=== PATIENT | female | born 1985 | race Caucasian/White ===

== ENCOUNTER 2017-06-18 14:25 | Emergency (ER) | payer OTHER ==
[~2017-06-18] VITALS: Ht 160 cm; Wt 60.3 kg
[~2017-06-18 14:25] MED LIST: FLUO20CA36 PO; PANT40TA PO; PHN25X PO; RMR15 PO; VLM5 PO
[2017-06-18 14:32] VITALS: TEMP 36.9; Ht 160 cm; Wt 60.3 kg
[2017-06-18] MEDS ORDERED: KETOROLAC TROMETHAMINE 30 MG/ML VIAL IV STA (15:41)
[2017-06-18] MEDS ORDERED: ONDANSETRON INJ 2 MG/ML 2 ML VIAL IV STA (15:41)
[2017-06-18] MEDS ORDERED: SODIUM CHLORIDE 0.9% 1000ML 1,000 ML IV STA (15:41)
[2017-06-18] MEDS ORDERED: MoRPHine SULFATE 4 MG/ML 1 ML CARP\\VIAL IV STA (15:41)
[2017-06-18] MEDS ORDERED: MoRPHine SULFATE 4 MG/ML 1 ML CARP\\VIAL IV PRN (15:45)
[2017-06-18] MEDS ORDERED: OPTIRAY 320 IV PRN (15:45)
[2017-06-18] MEDS ORDERED: LORA-741 PO (15:47)
[2017-06-18] MEDS ORDERED: METH10TA4 PO (15:48)
[2017-06-18 16:06] LABS: BASO % 0.2 %; BASO ABS # 0.02 K/uL (0-0.2); COMPLETE YES; EOS % 0.9 %; HEMATOCRIT 43.7 % (37-47); IG% 0.3 %; LYMPH % 24.4 %; MEAN CELL VOLUME 91.8 fL (80-100); MEAN CORPUSCULAR HEMOGLOBIN 31.9 pg (25-34); MEAN CORPUSCULAR HGB CONC 34.8 g/dl (32-36); MEAN PLATELET VOLUME 10.7 fL (7.4-10.4); MONO % 4.9 %; NEUT % 69.3 %; PLATELET COUNT 345 K/uL (130-400); RED BLOOD COUNT 4.76 M/uL (4.2-5.4); WHITE BLOOD COUNT 9.85 K/uL (4.8-10.8)
[2017-06-18 16:13] LABS: BUN/CREATININE RATIO 24.4 (10-20); CALCIUM 9.8 mg/dl (8.5-10.1); CREATININE 0.77 mg/dl (0.60-1.20); POTASSIUM 3.9 mmol/L (3.5-5.1)
--- NOTE | 2017-06-18 17:30 | DIAGNOSTIC IMAGING REPORT ---
EXAMINATION: PELVIC ULTRASOUND (transabdominal and endovaginal scanning) CLINICAL HISTORY: Pelvic pain COMPARISON STUDY: 12/02/2013 FINDINGS: The uterus measured 9.5 x 5.0 x 6.7 cm. There is a 1 cm hypoechoic focus within the left myometrium posteriorly, possibly representing a small fibroid. The endometrial stripe measured 12 mm. The right ovary measured 34 x 19 x 25 mm. The left ovary measured 41 x 22 x 25 mm. There is a 16 mm mildly complex follicle.. There is no ultrasonographic evidence of ovarian torsion. It should be noted that ovarian torsion can be present with normal Doppler ultrasonographic findings. There was no evidence of pathologic free pelvic fluid. IMPRESSION: 1. 1 cm hypoechoic focus in the left myometrium, likely are presenting a small fibroid 2. 16 mm mildly complex left ovarian follicle Electronically signed by: Ac De La Vega M.D. 06/18/2017 5:29 PM Dictated Date/Time: 06/18/2017 5:26 PM
[2017-06-18 18:44] LABS: MANUAL MICROSCOPIC REQUIRED? NO; REVIEW REQ? NO; URINE APPEARANCE CLEAR (CLEAR); URINE BILIRUBIN NEG (NEG); URINE COLOR YELLOW; URINE EPITHELIAL CELL AUTO 20-30 /lpf (0-5); URINE NITRITE NEG (NEG); URINE SPECIFIC GRAVITY 1.017 (1.000-1.030); UROBILINOGEN NEG (NEG)
--- NOTE | 2017-06-18 18:46 | DIAGNOSTIC IMAGING REPORT ---
ABDOMEN AND PELVIS CT WITH IV AND ORAL CONTRAST CT DOSE: 269.40 mGy.cm HISTORY: lower abdominal pain TECHNIQUE: Multiaxial CT images of the abdomen and pelvis were performed following the use of intravenous and oral contrast. A dose lowering technique was utilized adhering to the principles of ALARA. COMPARISON STUDY: Abdomen and pelvis CT 10/08/2015. FINDINGS: The lung bases are clear. The liver, spleen, gallbladder, pancreas, kidneys, and adrenal glands are within normal limits. No bowel wall thickening or obstruction. The pelvic organs are unremarkable. No suspicious lytic or blastic osseous lesions. IMPRESSION: No significant abnormality identified within the abdomen or pelvis. Electronically signed by: August Aburto M.D. 06/18/2017 6:45 PM Dictated Date/Time: 06/18/2017 6:37 PM
[2017-06-18 18:47] LABS: BENZODIAZEPINE, URINE POS (NEG); COCAINE,URINE NEG (NEG); PHENCYCLIDINE, URINE NEG (NEG)
[2017-06-18] MEDS ORDERED: TRAM-10 PO (19:29)
[2017-06-18 20:05] VITALS: BP 103/77; PULSE 81; O2SAT 99
--- NOTE | 2017-06-18 22:36 | EMERGENCY ROOM VISIT NOTE ---
History First contact with patient: 15:24 Chief Complaint: ABDOMINAL PAIN Stated Complaint: ABD. PAIN Nursing Triage Summary: triage note: Pt reports intermittent mid lower abd pain x 9 months. pt reports appt with [facility] for next saturday - she has not gone to [facility] for 4 years. History of Present Illness The patient is a 31 year old female who presents to the Emergency Room with complaints of lower abdominal pain radiating into the back, right worse than left. The patient reports that she has had intermittent lower abdominal pain for the past 9 months. It has worsened over the past week. The patient reports a prior history of Meckel's diverticulitis with bowel resection in 1996. Her last colonoscopy was approximately 3 years ago, finding polyps and no other acute findings. A colonoscopy was performed by Dr. Mcpherson. The patient denies any prior history of pelvic disease. She is status post appendectomy with her bowel resection. The patient does report decreased urine output without dysuria or hematuria. The patient denies , and reports that she has not had any sexual activity within the past month. Last menstruation was 2 weeks ago. She denies any vaginal drainage or spotting. The patient does have an appointment scheduled with [facility] next Saturday, and states that she has not had an [facility] evaluation in the past 4 years. She currently rates her discomfort a 6 out of 10. She denies any alleviating or aggravating factors for her pain. OB history is with a normal vaginal full -term delivery. Review of Systems HEENT: Denies dizziness, visual problems, hearing loss, tinnitus. Denies difficulty swallowing or oral lesions. PULMONARY: Denies cough, shortness of breath, sputum production or hemoptysis. CARDIOVASCULAR: Denies chest pain, palpitations, dyspnea on exertion, orthopnea or peripheral edema. GASTROINTESTINAL: Denies diarrhea, constipation or vomiting, otherwise see history of present illness. GENITOURINARY: Denies dysuria, frequency, urgency or nocturia. NEUROLOGIC: Denies history of epilepsy, CVA, TIA or chronic headaches. MUSCULOSKELETAL: Denies history of joint tenderness/swelling. SKIN: Denies rashes or lesions. PSYCHIATRIC: Denies history of depression or mental illness. ENDOCRINE: Denies history of diabetes or thyroid disorders. Past Medical/Surgical History Medical Problems: (1) Abdominal pain (2) Abdominal pain (3) Acute gastritis (4) Anxiety (5) Anxiety (6) Blepharitis of left eye (7) Hypokalemia (8) Intractable nausea and vomiting (9) Intrauterine device (IUD) contraception (10) Meckel's diverticulum (11) Nausea and vomiting (12) Vomiting (13) Vomiting Family History Cancer Diabetes mellitus FHx: gallbladder disease Hypertension Kidney disease Kidney stones Social History Smoking Status: Current Every Day Smoker Alcohol Use: none Drug Use: marijuana Marital Status: in relationship Housing Status: lives with family Occupation Status: employed Current/Historical Medications Scheduled Fluoxetine HCl (Fluoxetine HCl), 20 MG PO QAM Methylphenidate (Ritalin), 10 MG PO TID Scheduled PRN Lorazepam (Ativan), 0.5 MG PO TID PRN for Anxiety Tramadol (Ultram), 1-2 TAB PO Q4H PRN for Pain Allergies Coded Allergies: No Known Allergies (Verified , 06/18/17) Physical Exam Vital Signs Date Time Temp Pulse Resp B/P (MAP) Pulse Ox O2 Delivery O2 Flow Rate FiO2 06/18/17 20:05 81 18 103/77 99 06/18/17 19:40 81 18 103/77 99 Room Air 06/18/17 17:40 72 18 93/72 100 Room Air 06/18/17 16:15 79 18 104/73 100 Room Air 06/18/17 14:32 36.9 97 18 113/90 99 Room Air Physical Exam CONSTITUTIONAL: Healthy and well nourished. Alert and oriented X 3 with positive affect. Patient appears in moderate discomfort from pain. She does not appear acutely ill or toxic. HEENT: Normocephalic, atraumatic. Pupils equal, round and reactive. Ears and nares are clear. No scleral icterus or conjunctival injection/pallor. NECK: Full active range of motion without discomfort. RESPIRATORY: Clear to auscultation bilaterally with no wheezing, crackles, rhonchi or stridor. CARDIOVASCULAR: Regular rate and rhythm with no murmurs, rubs or gallops. GASTROINTESTINAL: Bowel sounds present in all quadrants. Patient has notable lower abdominal tenderness to palpation, and no focal upper abdominal tenderness. Negative CVA tenderness. No rigidity, guarding or rebound. GENITOURINARY: Exam was deferred by the patient. MUSCULOSKELETAL: Full range of motion of all joints without discomfort. INTEGUMENTARY: No rash or other significant dermatologic conditions noted. HEMATOLOGIC: No ecchymosis or petechiae noted. NEUROLOGIC: No focal neurologic deficits noted. Medical Decision & Procedures ER Provider Diagnostic Interpretation: Pelvic ultrasound shows the following: EXAMINATION: PELVIC ULTRASOUND (transabdominal and endovaginal scanning) CLINICAL HISTORY: Pelvic pain COMPARISON STUDY: 12/02/2013 FINDINGS: The uterus measured 9.5 x 5.0 x 6.7 cm. There is a 1 cm hypoechoic focus within the left myometrium posteriorly, possibly representing a small fibroid. The endometrial stripe measured 12 mm. The right ovary measured 34 x 19 x 25 mm. The left ovary measured 41 x 22 x 25 mm. There is a 16 mm mildly complex follicle.. There is no ultrasonographic evidence of ovarian torsion. It should be noted that ovarian torsion can be present with normal Doppler ultrasonographic findings. There was no evidence of pathologic free pelvic fluid. IMPRESSION: 1. 1 cm hypoechoic focus in the left myometrium, likely are presenting a small fibroid 2. 16 mm mildly complex left ovarian follicle Enhanced CT of the abdomen and pelvis does not show any evidence for acute appendicitis, diverticulitis or other acute findings. Radiologist report is as follows: ABDOMEN AND PELVIS CT WITH IV AND ORAL CONTRAST CT DOSE: 269.40 mGy.cm HISTORY: lower abdominal pain TECHNIQUE: Multiaxial CT images of the abdomen and pelvis were performed following the use of intravenous and oral contrast. A dose lowering technique was utilized adhering to the principles of ALARA. COMPARISON STUDY: Abdomen and pelvis CT 10/08/2015. FINDINGS: The lung bases are clear. The liver, spleen, gallbladder, pancreas, kidneys, and adrenal glands are within normal limits. No bowel wall thickening or obstruction. The pelvic organs are unremarkable. No suspicious lytic or blastic osseous lesions. IMPRESSION: No significant abnormality identified within the abdomen or pelvis. Laboratory Results 06/18/17 15:30 Red Blood Count 4.76, Mean Corpuscular Volume 91.8, Mean Corpuscular Hemoglobin 31.9, Mean Corpuscular Hemoglobin Concent 34.8, Mean Platelet Volume 10.7, Neutrophils (%) (Auto) 69.3, Lymphocytes (%) (Auto) 24.4, Monocytes (%) (Auto) 4.9, Eosinophils (%) (Auto) 0.9, Basophils (%) (Auto) 0.2, Neutrophils # (Auto) 6.83, Lymphocytes # (Auto) 2.40, Monocytes # (Auto) 0.48, Eosinophils # (Auto) 0.09, Basophils # (Auto) 0.02 06/18/17 15:30 Test 06/18/17 15:30 06/18/17 18:14 White Blood Count 9.85 K/uL (4.8-10.8) Red Blood Count 4.76 M/uL (4.2-5.4) Hemoglobin 15.2 g/dL (12.0-16.0) Hematocrit 43.7 % (37-47) Mean Corpuscular Volume 91.8 fL (80-100) Mean Corpuscular Hemoglobin 31.9 pg (25-34) Mean Corpuscular Hemoglobin Concent 34.8 g/dl (32-36) Platelet Count 345 K/uL (130-400) Mean Platelet Volume 10.7 fL (7.4-10.4) Neutrophils (%) (Auto) 69.3 % Lymphocytes (%) (Auto) 24.4 % Monocytes (%) (Auto) 4.9 % Eosinophils (%) (Auto) 0.9 % Basophils (%) (Auto) 0.2 % Neutrophils # (Auto) 6.83 K/uL (1.4-6.5) Lymphocytes # (Auto) 2.40 K/uL (1.2-3.4) Monocytes # (Auto) 0.48 K/uL (0.11-0.59) Eosinophils # (Auto) 0.09 K/uL (0-0.5) Basophils # (Auto) 0.02 K/uL (0-0.2) RDW Standard Deviation 40.5 fL (36.4-46.3) RDW Coefficient of Variation 12.0 % (11.5-14.5) Immature Granulocyte % (Auto) 0.3 % Immature Granulocyte # (Auto) 0.03 K/uL (0.00-0.02) Anion Gap 5.0 mmol/L (3-11) Est Creatinine Clear Calc Drug Dose 85.9 ml/min Estimated GFR () 117.6 Estimated GFR (Non- 101.4 BUN/Creatinine Ratio 24.4 (10-20) Calcium Level 9.8 mg/dl (8.5-10.1) Total Bilirubin 0.8 mg/dl (0.2-1) Direct Bilirubin 0.2 mg/dl (0-0.2) Aspartate Amino Transf (AST/SGOT) 10 U/L (15-37) Alanine Aminotransferase (ALT/SGPT) 15 U/L (12-78) Alkaline Phosphatase 63 U/L (45-117) Total Protein 8.0 gm/dl (6.4-8.2) Albumin 4.1 gm/dl (3.4-5.0) Lipase 119 U/L (73-393) Urine Color YELLOW Urine Appearance CLEAR (CLEAR) Urine pH 7.0 (4.5-7.5) Urine Specific [place] 1.017 (1.000-1.030) Urine Protein NEG (NEG) Urine Glucose (UA) NEG (NEG) Urine Ketones TRACE (NEG) Urine Occult Blood NEG (NEG) Urine Nitrite NEG (NEG) Urine Bilirubin NEG (NEG) Urine Urobilinogen NEG (NEG) Urine Leukocyte Esterase TRACE (NEG) Urine WBC (Auto) 1-5 /hpf (0-5) Urine RBC (Auto) 0-4 /hpf (0-4) Urine Hyaline Casts (Auto) 1-5 /lpf (0-5) Urine Epithelial Cells (Auto) 20-30 /lpf (0-5) Urine Bacteria (Auto) NEG (NEG) Urine Test NEG (NEG) Urine Opiates Screen POS (NEG) Urine Methadone, Qualitative NEG (NEG) Urine Barbiturates NEG (NEG) Urine Phencyclidine (PCP) Level NEG (NEG) Ur Amphetamine/Methamphetamine POS (NEG) MDMA (Ecstasy) Screen NEG (NEG) Urine Benzodiazepines Screen POS (NEG) Urine Cocaine Metabolite NEG (NEG) Urine Marijuana (THC) POS (NEG) The above labs were reviewed. The patient has no leukocytosis, although she has a mild left shift and bandemia. Partial renal profile, LFTs and lipase are grossly normal. Urinalysis shows a contaminated sample without hematuria. There is trace leukocyte esterase. Urine is negative. Urine drug screen is positive for opiates, amphetamines, benzodiazepines and marijuana. Medications Administered Medications (Trade) Dose Ordered Sig/Carlos Route Start Time Stop Time Status Last Admin Dose Admin Ketorolac Tromethamine (Toradol Inj) 30 mg NOW STAT IV 06/18/17 15:41 06/18/17 15:44 DC 06/18/17 16:10 30 MG Sodium Chloride 1,000 ml @ 999 mls/hr Q1H1M STAT IV 06/18/17 15:41 06/18/17 16:41 DC 06/18/17 16:12 999 MLS/HR Ondansetron HCl (Zofran Inj) 4 mg NOW STAT IV 06/18/17 15:41 06/18/17 15:44 DC 06/18/17 16:10 4 MG Morphine Sulfate (MoRPHine SULFATE INJ) 4 mg NOW STAT IV 06/18/17 15:41 06/18/17 15:44 DC 06/18/17 16:12 4 MG Morphine Sulfate (MoRPHine SULFATE INJ) 4 mg Q1H PRN IV 06/18/17 15:45 06/18/17 22:19 DC 06/18/17 17:46 4 MG ED Course Patient history and physical exam were performed. Nurse's notes were reviewed. Vital signs were reviewed and were normal. IV access was established, and labs were drawn. The patient was hydrated with normal saline, and administered IV Toradol, morphine and Zofran for pain. Labs were reviewed and were grossly normal. Urinalysis is not consistent with infection. LFTs and lipase are normal. The patient has no leukocytosis. Urine drug screen is positive for opiates, amphetamines, benzodiazepines and marijuana. Enhanced CT of the abdomen and pelvis was negative for diverticulitis, appendicitis or other acute intra-abdominal etiologies. Ultrasound shows a prominent left ovarian follicle and possible left uterine fibroid. The patient was advised of her imaging studies. I did offer to perform a pelvic exam, but the patient deferred, reporting that she would wait until her appointment with her [facility] next Saturday. She was encouraged to return to the emergency department as needed for any progressively worsening pain, vomiting or developing fever. She was encouraged to alternate ibuprofen and Tylenol for baseline pain relief. She was provided a prescription for Ultram if needed for breakthrough pain. Understanding of all discharge instructions, was happy with plan of care, and rated her discomfort a 3 out of 10 at the conclusion of my exam. The patient's blood pressure was normal, therefore will not need PCP follow-up. Her medications were also reviewed. Medical Decision Patient presents to the emergency department with complaint of lower abdominal and lower back pain. Her imaging studies today are not suggestive of appendicitis, ovarian cysts/torsion, diverticulitis or other acute intra- abdominal findings. The patient is afebrile and has no leukocytosis to suggest overwhelming infection. I do feel that the patient is safe for outpatient management with her [facility], and currently has an appointment scheduled for next week. She was instructed to return for any progressively worsening symptoms. [facility] Drug Monitoring Program Search Results: patient reviewed within database, no issues identified Impression Primary Impression: Lower abdominal pain Departure Information Prescriptions Tramadol (Ultram) 50 Mg Tab 1-2 TAB PO Q4H Y for Pain, #15 TAB For Initial Treatment Prov: Rell Shepard PA 06/18/17 Referrals Lexii Mukherjee M.D. (PCP) Patient Instructions My [facility]
[2017-06-21 14:22] LABS: COD UR NEGATIVE NG/ML (CUTOFF=50); HYDROCOD UR NEGATIVE NG/ML (CUTOFF=50); HYDROMOR UR NEGATIVE NG/ML (CUTOFF=50); HYDROXYETHYLFLURAZEPAM CONF NEGATIVE NG/ML (CUTOFF=50); HYDROXYMIDAZOLAM NEGATIVE NG/ML (CUTOFF=50); HYDROXYTRIAZOLAM CONF NEGATIVE NG/ML (CUTOFF=50); MORPHINE UR 2480 NG/ML (CUTOFF=50); NORHYDROCODONE CONF UR NEGATIVE NG/ML (CUTOFF=50); OXYMORPH UR 924 NG/ML (CUTOFF=50); TEMAZEPAM CONF NEGATIVE NG/ML (CUTOFF=50)
== END 2017-06-18 20:06 | disposition home or self-care (01) ==
LOC: C.EDB 14:27 → C.EDC 20:06
DX: R10.30 Lower abdominal pain, unspecified (principal); F41.9 Anxiety disorder, unspecified; E87.6 Hypokalemia; Q43.0 Meckel's diverticulum (displaced) (hypertrophic); Z83.3 Family history of diabetes mellitus; Z82.49 Family history of ischemic heart disease and other diseases of the circulatory system; F17.200 Nicotine dependence, unspecified, uncomplicated; F12.90 Cannabis use, unspecified, uncomplicated

== ENCOUNTER → 2017-06-25 | Outpatient (CLI) | payer OTHER ==
[~2017-06-25] MED LIST changes: +LORA-741 PO; +METH10TA4 PO; -PANT40TA PO; -PHN25X PO; -RMR15 PO; +TRAM-10 PO; -VLM5 PO
[2017-06-27 15:19] LABS: CHLAMYDIA TRACH RNA*** NOT DETECTED (NOT DETECTED); GC (NEIS GONORRHOEAE)RNA** NOT DETECTED (NOT DETECTED)
== END | disposition home or self-care (01) ==
LOC: C.LABSPEC 17:21
PROVIDERS: ATTEND Physician Assistant
DX: R10.2 Pelvic and perineal pain (principal)

== ENCOUNTER 2017-10-01 15:24 | Emergency (ER) | payer OTHER ==
[~2017-10-01] VITALS: Ht 160 cm; Wt 61.6 kg
[2017-10-01 15:30] VITALS: TEMP 36.8; Ht 160 cm; Wt 61.6 kg
[2017-10-01] MEDS ORDERED: KETOROLAC TROMETHAMINE 60 MG/2 ML VIAL IM STA (16:25)
--- NOTE | 2017-10-01 17:03 | DIAGNOSTIC IMAGING REPORT ---
CHEST 2 VIEWS ROUTINE CLINICAL HISTORY: cough history COMPARISON STUDY: 10/08/2015 FINDINGS: The bones soft tissues and hemidiaphragms are normal. The cardiomediastinal silhouette is normal. The lungs are clear. The pulmonary vasculature is normal. IMPRESSION: Negative chest. The above report was generated using voice recognition software. It may contain grammatical, syntax or spelling errors. Electronically signed by: Joaquín Osborn M.D. 10/01/2017 5:01 PM Dictated Date/Time: 10/01/2017 5:01 PM
[2017-10-01 17:30] LABS: INFLUENZA B ANTIGEN Neg for Influ B (NEG)
--- NOTE | 2017-10-01 17:34 | EMERGENCY ROOM VISIT NOTE ---
History First contact with patient: 16:18 Chief Complaint: FLU LIKE SX Stated Complaint: ACHY JOINTS, FEVER, SKIN HURTS,DEHY,SORE THRO History of Present Illness The patient is a 32 year old female who presents to the Emergency Room with complaints of sore throat, achiness and fever. The patient states that on Saturday evening she felt weak and had a sore throat. Saturday she still had the sore throat and started feeling achy all over. She also states last night she had a loose bowel movement but denies any nausea or vomiting. She is drinking fluids but states she is not eating. She also states overnight she felt like she had a fever but she did not check her temperature. She thought she was hallucinating all night due to the fever. She's had a minimal cough. She is a smoker. She has not had anything for body aches or fever today. Review of Systems 10 system review was performed and was negative unless stated otherwise history of present illness. Past Medical/Surgical History Medical Problems: (1) Abdominal pain (2) Abdominal pain (3) Acute gastritis (4) Anxiety (5) Anxiety (6) Blepharitis of left eye (7) Hypokalemia (8) Intractable nausea and vomiting (9) Intrauterine device (IUD) contraception (10) Meckel's diverticulum (11) Nausea and vomiting (12) Vomiting (13) Vomiting Family History Cancer Diabetes mellitus FHx: gallbladder disease Hypertension Kidney disease Kidney stones Social History Smoking Status: Current Every Day Smoker Alcohol Use: none Drug Use: marijuana Marital Status: in relationship Housing Status: lives with family Occupation Status: employed Current/Historical Medications Scheduled Fluoxetine HCl (Fluoxetine HCl), 20 MG PO QAM Methylphenidate (Ritalin), 10 MG PO TID Scheduled PRN Lorazepam (Ativan), 0.5 MG PO TID PRN for Anxiety Tramadol (Ultram), 1-2 TAB PO Q4H PRN for Pain Physical Exam Vital Signs Date Time Temp Pulse Resp B/P (MAP) Pulse Ox O2 Delivery O2 Flow Rate FiO2 10/01/17 15:30 36.8 107 20 111/75 98 Room Air Physical Exam PHYSICAL EXAM: Vital Signs were reviewed: Temperature 36.8, blood pressure 111/ 75, pulse 107, respiratory rate 20 Reviewed Nurse's notes and agree. Oxygen saturation is 98 % on room air which is normal . GENERAL: 32-year-old female appears in no acute distress. MENTAL STATUS: Alert, oriented, coherent. EARS: Canals clear. TMs good light reflex, no erythema or fluid level noted. NOSE: Nasal mucosa with moderate erythema engorgement. PHARYNX: No erythema, no edema noted. No exudate noted. Airway is adequate. NECK: Supple, non-tender. No lymphadenopathy noted. LUNGS: Inspiratory wheeze noted bilaterally along hernández. No rales or rhonchi noted. CARDIAC: Regular rate and rhythm without murmur. ABDOMEN: Positive bowel sounds all 4 quadrants. Soft, nontender to palpation without organomegaly or masses. SKIN: No rashes noted. Medical Decision & Procedures ER Provider Diagnostic Interpretation: CHEST 2 VIEWS ROUTINE CLINICAL HISTORY: cough history COMPARISON STUDY: 10/08/2015 FINDINGS: The bones soft tissues and hemidiaphragms are normal. The cardiomediastinal silhouette is normal. The lungs are clear. The pulmonary vasculature is normal. IMPRESSION: Negative chest. The above report was generated using voice recognition software. It may contain grammatical, syntax or spelling errors. Electronically signed by: Joaquín Osborn M.D. Laboratory Results Test 10/01/17 16:30 Influenza Type A Antigen Neg for Influ A (NEG) Influenza Type B Antigen Neg for Influ B (NEG) Medications Administered Medications (Trade) Dose Ordered Sig/Carlos Route Start Time Stop Time Status Last Admin Dose Admin Ketorolac Tromethamine (Toradol Inj) 60 mg NOW STAT IM 10/01/17 16:25 10/01/17 16:26 DC 10/01/17 16:36 60 MG ED Course The patient was evaluated. The patient's EMR medication list were reviewed. The patient was given Toradol 60 mg IM. Rapid influenza was negative for both influenza A and influenza B.. Chest x-ray was ordered and interpreted by the radiologist and myself as above without any acute findings. The patient was informed of findings and discharged home in stable condition. Medical Decision Differential diagnosis include viral URI, influenza, bronchitis, pneumonia. [place] Drug Monitoring Program Search Results: patient reviewed within database Medication Reconcilliation Current Medication List: was personally reviewed by me Blood Pressure Screening Patient's blood pressure: Normal blood pressure Impression Primary Impression: Viral syndrome Departure Information Dispostion Home / Self-Care Condition GOOD Referrals Lexii Mukherjee M.D. (PCP) Forms HOME CARE DOCUMENTATION FORM, IMPORTANT VISIT INFORMATION Patient Instructions My [facility] [place] Additional Instructions Push fluids, rest. Tylenol and/or ibuprofen as needed for fever and body aches. [id number] symptomatic treatment for head congestion. If symptoms persist, follow-up with your family doctor in 2 days for recheck.
[2017-10-01] MEDS ORDERED: ALPR0.5T PO (17:50)
[2017-10-01 17:51] VITALS: BP 106/75; PULSE 81; O2SAT 99
== END 2017-10-01 17:53 | disposition home or self-care (01) ==
LOC: C.EDB 15:25 → C.EDC 17:53
DX: B34.9 Viral infection, unspecified (principal); R50.9 Fever, unspecified; J02.9 Acute pharyngitis, unspecified; E86.0 Dehydration

== ENCOUNTER → 2017-11-04 | Outpatient (CLI) | payer OTHER ==
[~2017-11-04] MED LIST changes: +ALPR0.5T PO; +IBUP-1050 PO; -LORA-741 PO; -TRAM-10 PO; +ZOLP10TA PO
== END | disposition home or self-care (01) ==
LOC: C.LABSPEC 17:35
PROVIDERS: ATTEND Obstetrics & Gynecology
DX: R10.2 Pelvic and perineal pain (principal)

== ENCOUNTER → 2017-11-04 | Outpatient (CLI) | payer OTHER | END | disposition home or self-care (01) | LOC: C.PAPS 10:16 | PROVIDERS: ATTEND Obstetrics & Gynecology | DX: Z12.4 Encounter for screening for malignant neoplasm of cervix (principal) ==

== ENCOUNTER 2017-11-15 13:30 | Emergency (ER) | payer OTHER ==
[~2017-11-15] VITALS: Ht 160 cm; Wt 65.3 kg
[~2017-11-15 13:30] MED LIST changes: -FLUO20CA36 PO
[2017-11-15 13:40] VITALS: TEMP 36.8; Ht 160 cm; Wt 65.3 kg
[2017-11-15] MEDS ORDERED: KETOROLAC TROMETHAMINE 60 MG/2 ML VIAL IM STA (14:17)
[2017-11-15] MEDS ORDERED: OXYCODONE HCL IR 5 MG TAB (IMMEDIATE RELEASE) PO STA (14:17)
[2017-11-15] MEDS ORDERED: CYCLOBENZAPRINE HCL 10 MG TAB PO STA (14:17)
[2017-11-15] MEDS ORDERED: ONDANSETRON 4MG OD TAB PO ONE (14:30)
[2017-11-15] MEDS ORDERED: CYCL10TA6 PO (15:23)
[2017-11-15] MEDS ORDERED: OXYC1TAB3 PO (15:23)
--- NOTE | 2017-11-15 15:23 | EMERGENCY ROOM VISIT NOTE ---
History First contact with patient: 13:56 Chief Complaint: ABDOMINAL PAIN Stated Complaint: ENDOMETRIOSIS PAIN Nursing Triage Summary: Hx of endometriosis, surgery to be on 11/25. Got period yesterday and having pain of 7-8/10. Called doctor and Dr. Carreon told her to come here since her regular physician is not here. Lower abd cramping. History of Present Illness Patient is a 32-year-old white female who presents emergency department for evaluation of pelvic pain. She has a history of endometriosis and is scheduled to have surgery with Dr. Oneal on November 25. She states that she got her period yesterday, and has had progressively worsening pelvic pain, presently rating her discomfort an 8/10. She states the bleeding was heavy last evening, but has subsequently subsided and is normal rate. She is on oral contraceptives , which has helped very minimally with her endometriosis. She has been taking ibuprofen and heat applying heat. She found leftover oxycodone which she took last night which helped her to sleep slightly. She called her fireproof door assembler's office today, but Dr. Oneal was not in, and she relates that Dr. Carreon referred her to the emergency department for pain management. She denies any fever or chills. She is nauseous from the pain but has not vomited. She denies any urinary symptoms. She thinks that it is highly unlikely that she could be . Review of Systems Review of systems as per HPI. All other systems reviewed were negative. 10 systems reviewed. Past Medical/Surgical History Medical Problems: (1) Abdominal pain (2) Abdominal pain (3) Acute gastritis (4) Anxiety (5) Anxiety (6) Blepharitis of left eye (7) Endometriosis (8) Hypokalemia (9) Intractable nausea and vomiting (10) Intrauterine device (IUD) contraception (11) Lower abdominal pain (12) Lower abdominal pain (13) Nausea and vomiting (14) Toothache (15) Viral syndrome (16) Vomiting (17) Vomiting Surgical Problems: (1) History of tonsillectomy (2) Meckel's diverticulum Electronic medical records are reviewed and summarized as above/below. See Problem List. Family History Cancer Diabetes mellitus FHx: gallbladder disease Hypertension Kidney disease Kidney stones Social History Smoking Status: Current Every Day Smoker Alcohol Use: none Drug Use: marijuana Marital Status: in relationship Housing Status: lives with family Occupation Status: employed Current/Historical Medications Scheduled Methylphenidate (Ritalin), 10 MG PO TID Scheduled PRN Alprazolam (Xanax), 0.5 MG PO TID PRN for Anxiety Cyclobenzaprine Hcl (Flexeril), 10 MG PO TID PRN for Muscle Spasms Ibuprofen (Advil), 400 MG PO Q4 PRN for Pain Oxycodone Immediate Rel Tab (Roxicodone Ir), 1-2 TAB PO Q4H PRN for Severe Pain Zolpidem Tartrate (Ambien), 10 MG PO HS PRN for Sleep Physical Exam Vital Signs Date Time Temp Pulse Resp B/P (MAP) Pulse Ox O2 Delivery O2 Flow Rate FiO2 11/15/17 15:36 75 18 105/70 98 11/15/17 13:40 36.8 86 17 103/71 100 Room Air Physical Exam CONSTITUTIONAL: Patient is a tearful, uncomfortable appearing 32-year-old white female who is awake and alert and in moderate distress due to her stated complaint. CARDIOVASCULAR: Regular rate and rhythm, with normal S1 and S2, no murmur or gallop or rub is heard. No carotid bruits auscultated. No JVD. Peripheral pulses easily palpable. RESPIRATORY: Breath sounds equal and clear to auscultation without wheezes, rales, or rhonchi heard. Full and equal chest expansion without accessory muscle use or retractions ABDOMEN: Bowel sounds are present. Abdomen is soft, nondistended, moderately tender to palpation throughout the lower abdomen, no guarding, rebound or rigidity. There is no pain in the right lower quadrant over McBurney's point. INTEGUMENTARY: No lesions or rash, normal skin turgor. LYMPH: No lymphadenopathy. Medical Decision & Procedures Laboratory Results Test 11/15/17 14:36 Urine Test NEG (NEG) Medications Administered Medications (Trade) Dose Ordered Sig/Carlos Route Start Time Stop Time Status Last Admin Dose Admin Ketorolac Tromethamine (Toradol Inj) 60 mg NOW STAT IM 11/15/17 14:17 11/15/17 14:18 DC 11/15/17 14:32 60 MG Ondansetron HCl (Zofran Odt) 4 mg ONE ONCE PO 11/15/17 14:30 11/15/17 14:31 DC 11/15/17 14:31 4 MG Cyclobenzaprine HCl (Flexeril Tab) 10 mg NOW STAT PO 11/15/17 14:17 11/15/17 14:18 DC 11/15/17 14:31 10 MG Oxycodone HCl (Roxicodone Immediate Rel Tab) 10 mg NOW STAT PO 11/15/17 14:17 11/15/17 14:18 DC 11/15/17 14:32 10 MG ED Course The patient was seen and evaluated as above. Her old records were reviewed. She presents the emergency department for evaluation of pelvic pain secondary to endometriosis and her menses. She is scheduled for surgery in about a week and a half. She was referred to the emergency department for pain management by her fireproof door assembler. She has been evaluated thoroughly by gynecology. Her abdominal exam is otherwise benign. Urine sample was collected and test was negative. The patient did not wish to undergo any extensive testing. She was medicated with Toradol 60 mg IM, Flexeril 10 mg orally, oxycodone 10 mg orally and Zofran 4 mg ODT. She was allowed to rest, and on reassessment reported she felt significantly improved. She was much more comfortable. Abdominal exam remained benign. She was feeling well enough for discharged home. Her aunt is driving. She was given a small prescription for Flexeril and oxycodone that she can use and he was encouraged to follow-up with her fireproof door assembler next week for further care and evaluation. She expressed understanding of this and was agreeable. She rated her discomfort a 2/10 at discharge. Differential diagnoses entertained included menstrual cramps, dysmenorrhea, endometriosis, scarring or adhesions, , miscarriage, among others. Medical Decision See emergency department course. [facility] Drug Monitoring Program Search Results: patient reviewed within database, no issues identified Drug Monitoring Findings: Patient receives regular prescriptions for Ambien, alprazolam and Ritalin, but no recent narcotics. Medication Reconcilliation Current Medication List: was personally reviewed by me Blood Pressure Screening Patient's blood pressure: Normal blood pressure Blood pressure disposition: Did not require urgent referral Impression Primary Impression: Pelvic pain Departure Information Prescriptions Cyclobenzaprine Hcl (FLEXERIL) 10 Mg Tab 10 MG PO TID Y for Muscle Spasms, #20 TAB Prov: Christina Escobar PA 11/15/17 Oxycodone Immediate Rel Tab (ROXICODONE IR) 5 Mg Tab 1-2 TAB PO Q4H Y for Severe Pain, #15 TAB For Initial Treatment Prov: Christina Escobar PA 11/15/17 Referrals Abi Oneal M.D. (PCP) Patient Instructions My [facility] Additional Instructions DO NOT drive, drink alcohol, operate machinery, or perform dangerous activities today. You were given medications in the ER that can affect your ability to safely function or operate a vehicle. Oxycodone (OxyIR) 5mg: Take 1-2 pills every four hours as needed for breakthrough pain. Avoid alcohol, operating machinery or dangerous equipment, working on ladders or roofs, DRIVING, making important decisions, or situations where being under the influence may be dangerous. It is recommended to use an jiml-wcp-kujwvly stool softener such as Colace, 100mg twice daily while taking this medication to avoid constipation. Ibuprofen(Motrin, Advil) may be used for fever or pain. Use 600mg every six hours as needed. Take with food. Avoid using more than 2400mg in a 24 hour period. Do not use 2400mg per day for more than three consecutive days without physician direction. Prolonged inappropriate use can lead to stomach upset or ulcers. This is available over the counter and typically comes in 200mg tablets. (AND/OR) Acetaminophen(Tylenol) may be used for fever or pain. Use 1000mg every eight hours as needed. Avoid using more than 3000mg in a 24 hour period. This is available over the counter. Cyclobenzaprine (Flexeril) 10 mg: Take 1 pills 3 times daily as needed for muscle spasms.. Avoid alcohol, operating machinery or dangerous equipment, working on ladders or roofs, DRIVING, or situations where being under the influence may be dangerous. Diet and activity as tolerated. Continue current medications. Follow-up with Dr. Oneal next week for a recheck.
[2017-11-15 15:36] VITALS: BP 105/70; PULSE 75; O2SAT 98
== END 2017-11-15 15:37 | disposition home or self-care (01) ==
LOC: C.EDB 13:33 → C.EDC 15:37
DX: R10.2 Pelvic and perineal pain (principal); N80.9 Endometriosis, unspecified; F41.9 Anxiety disorder, unspecified; E87.6 Hypokalemia; Z80.9 Family history of malignant neoplasm, unspecified; Z83.3 Family history of diabetes mellitus; Z83.79 Family history of other diseases of the digestive system; Z84.1 Family history of disorders of kidney and ureter; F17.210 Nicotine dependence, cigarettes, uncomplicated; Z79.899 Other long term (current) drug therapy

== ENCOUNTER → 2017-11-25 | Day surgery (SDC) | payer OTHER ==
[2017-11-12 11:50] VITALS: Ht 160 cm; Wt 63.6 kg
--- NOTE | 2017-11-22 14:18 | HISTORY & PHYSICAL EXAMINATION ---
DATE OF ADMISSION: 11/25/2017 CHIEF COMPLAINT: Increasingly severe dysmenorrhea. HISTORY OF PRESENT ILLNESS: The patient is a 32-year-old white female 1, para 1, who complains of increasingly severe pain with menses over the past year. The patient was given progestin only control pills on June of 2017 and despite taking these regularly, she is still having her menses and still having significant pain. The pain is to the point where she will go to the Emergency Room for pain medication. The patient has used a Mirena IUD in the past and this worked well, but she does not think she can tolerate having an IUD placed in the office during her menses due to the dysmenorrhea. The patient's last Pap smear was on 11/04/2017 and this was negative. Chlamydia and gonorrhea tests were also negative on 11/04/2017. The patient did have an ultrasound done on June of 2017. She had what appeared to be a small 1-cm fibroid as well as a small 1.6-cm mildly complex left ovarian follicle. We have discussed the use of various other contraceptives to try and reduce her dysmenorrhea, but the patient would like to proceed with diagnostic laparoscopy to determine whether or not she has endometriosis. The patient has paternal aunts, who have been diagnosed with endometriosis. Mirena will be placed in the OR after the diagnostic laparoscopy has been completed. PAST MEDICAL HISTORY: ALLERGIES: She has no known drug allergies. MEDICATIONS: The patient takes Ritalin actually 3 times per day. She also takes Xanax for anxiety if necessary 3 times daily and Ambien 5 mg at bedtime as needed for sleep. ILLNESSES: Abdominopelvic pain and dysmenorrhea as above. The patient also suffers with anxiety. History of acid reflux. PAST SURGICAL HISTORY: She has had an appendectomy done. She also has had a surgery for removal of a Meckel's diverticulum. In addition, tonsillectomy and removal of wisdom teeth. FAMILY HISTORY: As mentioned, maternal aunts with endometriosis. She had a maternal aunt who had colon cancer. Her maternal grandmother has had diabetes. Her father has hypertension. Her mother has thyroid disease. SOCIAL HISTORY: The patient is single. She denies drinking alcohol, though smokes one half pack of cigarettes daily. PHYSICAL EXAMINATION: GENERAL: Height 5 feet 3 inches and weight 140 pounds. VITAL SIGNS: Blood pressure 138/80. HEENT: Grossly within normal limits. NECK: Supple without masses. CHEST: Lungs are clear with no wheezing. HEART: Regular rate and rhythm. No murmurs, gallops or rubs. BREASTS: Nontender with no masses palpable and no nipple discharge and no lymphadenopathy. ABDOMEN: Soft and nontender with no mass palpable. No hepatosplenomegaly. There is a lower midline abdominal scar from her surgery for the Meckel's diverticulum. PELVIC: External genitalia normal. Vagina is pink and stimulated. Cervix is pink and closed with no lesions visible. Uterus within normal limit size with some tenderness. Adnexa minimal tenderness. No masses palpable. EXTREMITIES: No cyanosis, clubbing or edema. IMPRESSION: A 32-year-old white female 1, para 1 with increasingly severe dysmenorrhea. This has become incapacitating for her. The patient also desires placement of Mirena IUD. PLAN: The patient is for a diagnostic laparoscopy with possible operative laparoscopy to include placement of a scope into the abdomen with or without lysis of adhesions, laser ablation, fulguration or excision of endometrial implants. Also for Mirena IUD insertion. The patient is aware of the risks of infection, bleeding, perforation of the uterus, possible injury to internal organs requiring additional surgery or treatment, possible hospitalization as well as the risk of anesthesia. The patient is aware of other methods of contraception as well. MTDD
[~2017-11-25] VITALS: Ht 160 cm; Wt 63.6 kg
[~2017-11-25] MED LIST changes: +ACETAMINOPHEN 1000 MG/100 ML IV IV ONE; +ATROPINE SULFATE 0.1 MG/ML 5ML SYR IV PRN; +BUPIVACAINE 0.25% 30 ML VIAL ONE; +CYCL10TA6 PO; +DEXAMETHASONE SOD INJ 4 MG/ML VIAL ONE; +EpHEDrine SULFATE INJ 50 MG/ML AMP IV PRN; +FENTANYL CITRATE INJ 50 MCG/1 ML 2 ML VIAL IV PRN; +FENTANYL CITRATE INJ 50 MCG/1 ML 2 ML VIAL ONE; +GLYCOPYRROLATE INJ 0.2 MG/ML VIAL ONE; +IBUPROFEN 600 MG TAB PO PRN; +KETOROLAC TROMETHAMINE 30 MG/ML VIAL ONE; +LACTATED RINGER'S 1000ML 1,000 ML IV SCH; +LIDOCAINE HCL 2% 2 ML VIAL (20MG/ML) ONE; +MIDAZOLAM HCL 1 MG/ML 2ML VIAL ONE; +NEOSTIGMINE METHYLSULFATE 5 MG/5 ML SYR ONE; +ONDANSETRON INJ 2 MG/ML 2 ML VIAL IV PRN; +ONDANSETRON INJ 2 MG/ML 2 ML VIAL ONE; +OXYC-57 PO; +OXYC1TAB3 PO; +OXYCODONE/ACETAMINOPHEN 5-325 TAB PO PRN; +PROPOFOL IV EMULSION 10 MG/ML 20 ML VIAL IV ONE; +ROCURONIUM BROMIDE 10 MG/ML 5 ML VIAL IV ONE; +SODIUM CHLORIDE 0.9% 1000ML 1,000 ML IV SCH
--- NOTE | 2017-11-25 08:00 | History & Physical Bridge - SC ---
H&P Re-Evaluation Bridge Note: I have examined the patient, reviewed the History & Physical and in the interval since the performance of the History & Physical I have noted the following changes of clinical significance: No changes noted
--- NOTE | 2017-11-25 09:54 | [facility] Post Operative Brief Note ---
Immediate Operative Summary Operative Date Nov 25, 2017. Pre-Operative Diagnosis Pelvic pain Post-Operative Diagnosis Same as pre-op with pelvic adhesions and pelvic endometrial implants Procedure(s) Performed Diagnostic laparoscopy with lysis of adhesions and fulguration of endometrial implants and Mirena Insertion Surgeon Laser Engraver Surgeon(s) None Estimated Blood Loss 25ML Findings Consistent with Post-Op Diagnosis Specimens None Drains None Anesthesia Type General Complication(s) none
[2017-11-25] MEDS: FENTANYL CITRATE INJ 50 MCG/1 ML 2 ML VIAL IV PRN ×4 (10:08→10:29)
--- NOTE | 2017-11-25 10:16 | Discharge Instructions-SurgCtr ---
Discharge Instructions Date of Service Nov 25, 2017. Visit Reason for Visit: Pelvic pain with severe dysmenorrhea Discharge Discharge Diagnosis / Problem: Diagnostic laparoscopy, lysis of adhesions, fulguration of endometriosis Discharge Goals Goal(s): Diagnostic testing, Therapeutic intervention Medications Stopped Medications Name(s): no recent blood thinners Activity Recommendations Activity Limitations: per Instructions/Follow-up section ACTIVITY RECOMMENDATIONS: * Rest the first 2-3 days. You should be back to your normal activity levels by day 3. * No heavy lifting for 2 weeks. * No intercourse, tampons or douching for 2 weeks. * You may shower the next day. * Do not drive anytime that you are taking narcotic pain medicines. RETURN TO SCHOOL/WORK: * May return to school or work after 3 days. DIET: Nausea may occur in the immediate post-operative period. If so, take clear liquids such as tea, bouillon, apple juice until all nausea has subsided, then resume usual diet. MEDICATIONS: Resume previous medications unless instructed otherwise by your surgeon. Ibuprofen 200mg 2-3 tablets every 4-6 hours as needed -- OR -- Aleve 2 tablets every 8-12 hours as needed for post-operative discomfort Medications are over the counter. Tylenol may be used if above medications are contraindicated or not preferred. Medication should be taken with food or milk. Do not take on an empty stomach. If pain is severe, may take percocet as prescribed. If pain is not severe, take the above over the counter pain medications. Stop the percocet as soon as is possible. SPECIAL CARE INSTRUCTIONS: * Check temperature twice daily for one week. report any elevation over 101 degrees. * You may experience some vagina spotting and/or bleeding. This is normal for 1 -2 weeks and should not be heavier than a normal period. If it is unusual in amount, call your physician. * Post-operative discomfort may consist of a sore throat, a "bloated" feeling and pain in the shoulders. these are normal symptoms, which usually only last for 2-3 days. * Remove band-aids tomorrow and shower. There is no need to replace band-aids unless there is drainage or discomfort. You have steri-strips. Leave them in place for one week, after that you may removed them if they have not fallen off already. FOLLOW UP VISIT: Call your doctor's office for a post-operative 2- week visit if not already scheduled. [phone] - Anesthesia . Post Anesthesia Instructions: If you have had General Anesthesia or IV Sedation: * Do not drive today. * Resume driving when surgeon permits. * Do not make important decisions or sign legal documents today. * Call surgeon for: 1. Temperature elevations greater than 101 degrees F. 2. Uncontrollable pain. 3. Excessive bleeding. 4. Persistent nausea and vomiting. 5. Medication intolerance (nausea, vomiting or rash). * For nausea and vomiting use only clear liquids such as: tea, soda, bouillon until nausea subsides, then gradually increase diet as tolerated. * If you have any concerns or questions, call your surgeon's office. If physician is unavailable and it is an emergency, call 911 or go to the nearest emergency room. . Instructions / Follow-Up Instructions / Follow-Up See above instructions. Diet Recommendations Home Diet: resume previous diet Procedures Procedures Performed: Diagnostic laparoscopy with lysis of adhesions and fulguration of endometrial implants and Mirena Insertion Pending Studies Studies pending at discharge: no Medical Emergencies . Who to Call and When: Medical Emergencies: If at any time you feel your situation is an emergency, please call 911 immediately. . Non-Emergent Contact Non-Emergency issues call your: General Office Assistant Call Non-Emergent contact if: temperature is above 100.5, your pain is not controlled, your pain is unusual for you, wound has increased drainage, wound has increased redness, wound has increased pain . . "Provider Documentation" section prepared by Abi Oneal. . [place] Drug Monitoring Program Search Results: patient reviewed within database Drug Monitoring Findings: The PDMP report was discussed with the patient.
--- NOTE | 2017-11-25 10:42 | Anesthesia Progress Nt - [facility] ---
Anesthesia Post Op Note Date & Time Nov 25, 2017 at 10:42 Vital Signs Vital Signs Past 12 Hours Date Time Temp Pulse Resp B/P (MAP) Pulse Ox O2 Delivery O2 Flow Rate FiO2 11/25/17 10:01 36.5 80 12 134/80 100 Mask 6 11/25/17 07:03 36.6 83 16 105/68 (80) 98 Room Air Notes Mental Status: alert / awake / arousable, participated in evaluation Pt Amnestic to Procedure: Yes Nausea / Vomiting: adequately controlled Pain: adequately controlled Airway Patency, RR, SpO2: stable & adequate BP & HR: stable & adequate Hydration State: stable & adequate Anesthetic Complications: no major complications apparent
[2017-11-25 10:58] VITALS: TEMP 36.5
--- NOTE | 2017-11-25 11:01 | OPERATIVE REPORT ---
DATE OF OPERATION: 11/25/2017 PREOPERATIVE DIAGNOSES: Pelvic pain and increasing dysmenorrhea. POSTOPERATIVE DIAGNOSES: Same with pelvic adhesions and endometriosis. PROCEDURE PERFORMED: Diagnostic laparoscopy with lysis of adhesions and fulguration of endometrial implants, insertion of Mirena IUD. SURGEON: Dr. Abi Oneal. ANESTHESIA: General. EMT BASIC: Dr. Del Rio. DESCRIPTION OF PROCEDURE: The patient was taken to the operating room where general anesthesia was administered. After an adequate level was obtained, she was placed in dorsal lithotomy position. Abdomen, vulva, vagina, and cervix were prepped with Betadine solution. The patient was draped. Coombs catheter was inserted into the bladder. Hulka clamp was inserted into the uterus. An incision was then made at the lower edge of the umbilicus using the scalpel. This was carried down directly to the fascia. Fascia was incised sharply using the scalpel. Peritoneum was then identified and opened using Metzenbaum scissors. Laparoscopic trocar and sheath were then inserted. A suture of 0 Vicryl was used to bring the fascia together around the laparoscope. An Allis clamp was used as well to hold the skin tight against the laparoscopic sheath to prevent gas from escaping. Trocar was removed and laparoscope inserted after the abdomen was insufflated with CO2. There was a sheet of adhesions of omentum to the mid left anterior abdominal wall. There was another thicker adhesion to the right side along the right anterior abdominal wall. The uterus appeared normal as did the fallopian tubes. The right ovary appeared normal with no adhesions or evidence of endometriosis. The left ovary had several endometrial implants on its surface. In addition, there were implants along the right pelvic sidewall. It should be noted that a second 5 mm port was inserted after the laparoscope was inserted. This port was inserted under direct visualization. A probe was inserted through this port in order to visualize the pelvic organs better. The patient's liver appeared smooth and without adhesion or lesion. A small portion of the gallbladder could be seen and this appeared normal. The patient's appendix had previously been surgically removed. A wire tip cautery was introduced and the sheet of adhesions along the left anterior abdomen were cut using cautery. Closer inspection of the thick adhesion on the right side revealed a loop of bowel running up within that adhesion. I did not attempt to take that adhesion down. A ball tip cautery was then introduced through the operative scope and the lesions of endometriosis were fulgurated with it. After this was done, 60 mL of saline was used to rinse out the pelvis and rinse away the blood that had resulted from the fulguration. Laparoscopic instruments were then removed and the laparoscopic incisions were closed. Fascia was closed with interrupted sutures of 0 Vicryl. Skin was closed with interrupted sutures of 3-0 Vicryl. Steri-Strips were placed. 0.25% Marcaine was also injected into the subcutaneous tissues around the incisions. The Hulka clamp was then removed as well as the Coombs catheter. The uterus was sounded to 8.5 cm. Mirena IUD was inserted after the cervix was dilated. Strings were cut to approximately 2 cm. At this point, the procedure was ended. ESTIMATED BLOOD LOSS: 25 mL. CONDITION: The patient was taken to the recovery room in good condition. I attest to the content of the Intraoperative Record and any orders documented therein. Any exceptions are noted below. MTDD
[2017-11-25 11:50] VITALS: BP 107/70; PULSE 71; O2SAT 98
== END | disposition home or self-care (01) ==
LOC: X.SURG 06:48
PROVIDERS: ATTEND Obstetrics & Gynecology
DX: N73.6 Female pelvic peritoneal adhesions (postinfective) (principal); N94.6 Dysmenorrhea, unspecified; K21.9 Gastro-esophageal reflux disease without esophagitis; Z90.49 Acquired absence of other specified parts of digestive tract; Z82.49 Family history of ischemic heart disease and other diseases of the circulatory system; Z83.3 Family history of diabetes mellitus; Z80.0 Family history of malignant neoplasm of digestive organs

== ENCOUNTER → 2018-01-03 | Outpatient (CLI) | payer OTHER ==
[~2018-01-03] MED LIST changes: -ACETAMINOPHEN 1000 MG/100 ML IV IV ONE; -ATROPINE SULFATE 0.1 MG/ML 5ML SYR IV PRN; -BUPIVACAINE 0.25% 30 ML VIAL ONE; -CYCL10TA6 PO; -DEXAMETHASONE SOD INJ 4 MG/ML VIAL ONE; -EpHEDrine SULFATE INJ 50 MG/ML AMP IV PRN; -FENTANYL CITRATE INJ 50 MCG/1 ML 2 ML VIAL IV PRN; -FENTANYL CITRATE INJ 50 MCG/1 ML 2 ML VIAL ONE; -GLYCOPYRROLATE INJ 0.2 MG/ML VIAL ONE; -IBUPROFEN 600 MG TAB PO PRN; -KETOROLAC TROMETHAMINE 30 MG/ML VIAL ONE; -LACTATED RINGER'S 1000ML 1,000 ML IV SCH; -LIDOCAINE HCL 2% 2 ML VIAL (20MG/ML) ONE; -MIDAZOLAM HCL 1 MG/ML 2ML VIAL ONE; -NEOSTIGMINE METHYLSULFATE 5 MG/5 ML SYR ONE; -ONDANSETRON INJ 2 MG/ML 2 ML VIAL IV PRN; -ONDANSETRON INJ 2 MG/ML 2 ML VIAL ONE; -OXYC1TAB3 PO; -OXYCODONE/ACETAMINOPHEN 5-325 TAB PO PRN; -PROPOFOL IV EMULSION 10 MG/ML 20 ML VIAL IV ONE; -ROCURONIUM BROMIDE 10 MG/ML 5 ML VIAL IV ONE; -SODIUM CHLORIDE 0.9% 1000ML 1,000 ML IV SCH
== END | disposition home or self-care (01) ==
LOC: C.LABSPEC 11:10
PROVIDERS: ATTEND Obstetrics & Gynecology
DX: N89.8 Other specified noninflammatory disorders of vagina (principal)